=== PATIENT | male | born 1985 | race Two or more races ===

== ENCOUNTER 2019-06-23 20:04 | Emergency (ER) | payer SELFPAY ==
[~2019-06-23] VITALS: Ht 165.1 cm; Wt 63.6 kg
[2019-06-23] MEDS ORDERED: IV NORMAL SALINE 1000ML BAG 1,000 ML IV SCH (20:13)
[2019-06-23] MEDS ORDERED: fentaNYL PF VIAL 100 MCG/2 ML VIAL IV PRN (20:15)
[2019-06-23] MEDS ORDERED: ONDANSETRON PF 4 MG/2 ML VIAL. IVP ONE (20:15)
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
[2019-06-23] MEDS ORDERED: HYDROmorphone 2 MG/ML VIAL ONE (20:38)
[2019-06-23 20:39] LABS: BASO # 0.1 x10^3/uL (0.0-0.2); BASO % 1 % (0-3); EOS % 0 % (0-3); HEMATOCRIT 33.7 % (39.0-53.0); LYMPH # 3.5 x10^3/uL (1.0-4.8); LYMPH % 21 % (24-48); MEAN CORPUSCULAR HEMOGLOBIN 29 pg (25-35); MEAN CORPUSCULAR HGB CONC 33 g/dL (31-37); MEAN CORPUSCULAR VOLUME 88 fL (79-100); MONO # 1.3 x10^3/uL (0.0-1.1); MONO % 8 % (0-9); NEUT % 71 % (31-73); PLATELET COUNT 388 x10^3/uL (140-400); RED BLOOD COUNT 3.83 x10^6/uL (4.30-5.70); RED CELL DISTRIBUTION WIDTH 15.7 % (11.5-14.5); WHITE BLOOD COUNT 16.9 x10^3/uL (4.0-11.0)
[2019-06-23 20:45] LABS: CALCIUM 9.7 mg/dL (8.5-10.1); CREATININE 1.1 mg/dL (0.7-1.3); GFR 77.1; POTASSIUM 3.8 mmol/L (3.5-5.1)
[2019-06-23] MEDS ORDERED: IOHEXOL 300 MG/ML 100ML VIAL. IV ONE (20:45)
[2019-06-23] MEDS ORDERED: HYDROmorphone 2 MG/ML VIAL IV ONE ×2 (20:45→22:00)
[2019-06-23 20:46] LABS: PROTHROMBIN TIME PATIENT 14.5 SEC (11.7-14.0)
[2019-06-23 20:51] LABS: ALBUMIN 3.8 g/dL (3.4-5.0); ALBUMIN/GLOBULIN RATIO 0.7 (1.0-1.7); TOTAL BILIRUBIN 0.4 mg/dL (0.2-1.0); TOTAL PROTEIN 9.3 g/dL (6.4-8.2)
--- NOTE | 2019-06-23 20:59 | RAD ---
CT scan of the cervical spine without contrast 06/23/2019 Clinical history: Fall with neck injury. Technique: Unenhanced, contiguous, 0.625 mm axial sections were obtained through the cervical spine. 2.5 mm reconstructed axial and 2 mm coronal and sagittal reconstructed images were obtained. One or more of the following individualized dose reduction techniques were utilized for this study: 1. Automated exposure control. 2. Adjustment of the mA and/or kV according to patient size. 3. Use of iterative reconstruction technique. Findings: Sagittal and coronal reconstructed images demonstrate very mild lateral curvature of the cervical spine convex to the left. There is reversal of the normal cervical lordosis. No fracture or subluxation of the cervical vertebrae seen. Degenerative changes are seen involving the uncovertebral and facet joints throughout the mid and lower cervical disc spaces. Impression: No fracture or subluxation of the cervical vertebra is identified. Electronically signed by: Jonas Bradshaw MD (06/23/2019 8:57 PM) [id number]
[2019-06-23] MEDS ORDERED: CONTRAST GIVEN. MC PRN (21:00)
--- NOTE | 2019-06-23 21:08 | RAD ---
EXAM: CT Abdomen and Pelvis with IV contrast CLINICAL HISTORY: Fall, 15 foot from ladder. COMPARISON: 08/30/2018 TECHNIQUE: Helical CT of the abdomen and pelvis was performed following the administration of IV contrast. Axial, coronal and sagittal reformatted images were generated. ---PQRS compliance statement - One or more of the following individualized dose reduction techniques were utilized for this study: 1. Automated exposure control 2. Adjustment of the mA and/or kV according to patient size 3. Use of iterative reconstruction technique--- FINDINGS: Lower chest: Unremarkable Abdomen and pelvis: Liver and biliary system: No focal liver lesion. Gallbladder is normal. No biliary ductal dilatation. 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 Pancreas: Unremarkable Adrenal glands: Unremarkable Kidneys: The left kidney is markedly atrophic. Homogenous contrast uptake within the right kidney. Nonobstructing right interpolar renal calculus. No focal renal lesion. No hydronephrosis. No hydroureter. Lymph nodes/retroperitoneum: Probably prominent inguinal lymph nodes are seen. No definite abdominal or pelvic lymphadenopathy by size criteria. Vessels: IVC filter is seen. Bowel/Peritoneal cavity: Appendix is not seen. Moderate colonic stool content is seen. No definite small or large bowel dilatation. No abdominal or pelvic ascites. Abdominal wall: Fat-containing left inguinal hernia. Bladder: Unremarkable Bones: Thoracolumbar spine fusion hardware is seen. Please see dedicated CT thoracic and lumbar spine for full thoracic and lumbar spine details. No aggressive osseous lesion. IMPRESSION: Please see dedicated CT thoracic and lumbar spine reports for full spine details. Otherwise, no evidence for acute abdominal or pelvic trauma. Electronically signed by: Ashok Toledo MD (06/23/2019 9:05 PM) [facility]
[2019-06-23 21:14] LABS: BILIRUBIN,URINE NEGATIVE (NEG); CLARITY,URINE CLEAR; COLOR,URINE YELLOW; NITRITE,URINE NEGATIVE (NEG); PH,URINE 8.5 (<5.0-8.0); PROTEIN,URINE NEGATIVE (NEG-TRACE); UROBILINOGEN,URINE 0.2 mg/dL (0.2 mg/dL)
--- NOTE | 2019-06-23 21:19 | RAD ---
CT scan of the thoracic and lumbar spine without contrast 06/23/2019 CLINICAL HISTORY: Fall from ladder with mid and low back pain. TECHNIQUE: Unenhanced, contiguous, 0.625 mm axial sections were obtained through the thoracic and lumbar spine. 3 mm reconstructed sagittal, axial and coronal images were obtained. One or more of the following individualized dose reduction techniques were utilized for this study: 1. Automated exposure control. 2. Adjustment of the mA and/or kV according to patient size. 3. Use of iterative reconstruction technique. FINDINGS: Comparison study is dated 08/30/2018. Sagittal and coronal reconstructed images demonstrate minimal S-shaped curvature of the thoracolumbar spine. The patient is post laminectomy and fusion at L2-3 using bone graft material. The patient is post posterolateral fusion using pedicle screws and stabilizing rods extending from T12 to L4. Degenerative changes consisting of disc space narrowing, vertebral endplate sclerosis and mild anterior and posterior vertebral body osteophyte formation are seen involving the L5-S1 disc space. No fracture or subluxation of the thoracic or lumbar vertebrae is seen. IMPRESSION: No fracture or subluxation of the thoracic or lumbar vertebrae is seen. Electronically signed by: Jonas Bradshaw MD (06/23/2019 9:16 PM) [id number]
[2019-06-23 21:21] LABS: BACTERIA,URINE 0 /HPF (0-FEW); BARBITURATES NEG (NEG); BENZODIAZEPINES NEG (NEG); CANNABINOIDS POS (NEG); COCAINE NEG (NEG); METHADONE NEG (NEG); OPIATES POS (NEG); PHENCYCLIDINE NEG (NEG); SQUAMOUS EPITHELIAL CELL,UR OCC /LPF
[2019-06-23 21:23] LABS: AMPHETAMINE/METHAMPHETAMINE NEG (NEG)
[2019-06-23] MEDS ORDERED: DICL50TA4 PO (21:29)
[2019-06-23] MEDS ORDERED: ORPH100T PO (21:29)
[2019-06-23 21:33] VITALS: BP 133/63
== END 2019-06-23 21:52 | disposition home or self-care (01) ==
LOC: ER 20:04
DX: S20.229A Contusion of unspecified back wall of thorax, initial encounter (principal); M54.5 Low back pain; G89.29 Other chronic pain; Z88.5 Allergy status to narcotic agent; W11.XXXA Fall on and from ladder, initial encounter; Y93.89 Activity, other specified; Y92.89 Other specified places as the place of occurrence of the external cause; Y99.8 Other external cause status
CPT/HCPCS: 36415; 72125; 72128; 74177; 80053; 80307; 81001; 85025; 85610; 85730; 86850; 86900; 86901; 96374; 96375; 99285; G0480; J2405; J3010; J7030; Q9967